=== PATIENT | female | born 1960 | race Caucasian/White ===

== ENCOUNTER → 2017-02-13 | Outpatient (CLI) | payer MEDICARE, OTHER ==
[~2017-02-13] MED LIST: ZANTAC150 MG PO
== END ==
LOC: SLEEP 21:30
DX: G47.30 Sleep apnea, unspecified (principal); G47.10 Hypersomnia, unspecified
CPT/HCPCS: 95811

== ENCOUNTER → 2017-02-14 | Outpatient (CLI) | payer MEDICARE, OTHER | LOC: SLEEP 21:30 | DX: G47.30 Sleep apnea, unspecified (principal); G47.10 Hypersomnia, unspecified | CPT/HCPCS: 95805 ==

== ENCOUNTER 2021-03-19 13:48 | Emergency (ER) | payer MEDICARE, OTHER ==
[~2021-03-19 13:48] MED LIST changes: +ABILIFY10 MG PO; +ALBUTEROL1.25 MG/3 INH; +ALDACTONE25 MG PO; +ALPRAZOLAM0.5 MG PO; +ANTI-GAS180 MG PO; +BACTRIM DS TAB1 EACH PO; +BUMETANIDE1 MG PO; +CALCIUM600 MG PO; +CLEOCIN HCL300 MG PO; +COLACE 100MG C100 MG PO; +COLCHICINE 0.60.6 MG PO; +COREG6.25 MG PO; +CYMBALTA60 MG PO; +DITROPAN XL5 MG PO; +ECOTRIN81 MG PO; +ESTRACE1 MG PO; +FEOSOL325 MG PO; +FISH OIL 1,2001 EACH PO; +FISH OIL EC 1,1 EAC1 PO; +FLONASE 0.05% N16 GM; +IBUPROFEN400 MG PO; +KEFLEX CAP 500500 MG PO; +KENALOG OINT 0.15 GM TOP; +KLOR-CON M1010 MEQ PO; +LASIX20 MG PO; +LASIX40 MG PO; +LISINOPRIL20 MG PO; +MOBIC7.5 MG PO; +MULTIPLE VITAM1 EACH PO; +MYCOSTATIN POWD15 GM TOP; +NEURONTIN400 MG PO; +NIZORAL 2% CREA15 GM TOP; +NORCO 7.5-3251 EACH PO; +OMNICEF 300 MG300 MG PO; +OS-CAL 500+D31 EACH PO; +PEPCID40 MG PO; +PHENERGAN 12.12.5 M1 PO; +PRILOSEC OTC20 MG PO; +PROVIGIL200 MG PO; +RITALIN LA20 MG PO; +ROBAXIN-750750 MG PO; +SINGULAIR10 MG PO; +SPIRIVA HANDIH18 MCG INH; +SPIRONOLACTONE25 MG PO; +SYMBICORT 80-41 INHA INH; +SYNTHROID175 MCG PO; +SYNTHROID200 MCG PO; +VENTOLIN HFA 66.7 GM INH; +VESICARE5 MG PO; +WELLBUTRIN XL150 M1 PO; +XYZAL5 MG PO; +ZESTRIL40 MG PO; +ZOFRAN4 MG PO; +ZYLOPRIM 100 M100 MG PO; +ZYRTEC10 M3 PO; +[UNRECOGNIZED DRUG - OTHER] TP
[2021-03-19] MEDS ORDERED: BACTRIM DS TAB1 EACH PO (15:20)
[2021-03-19] MEDS ORDERED: ATHLETIC FOOT C30 GM TP (15:20)
== END 2021-03-19 15:30 | disposition home or self-care (01) ==
LOC: ER1 13:48
DX: N61.0 Mastitis without abscess (principal); B35.6 Tinea cruris; I10 Essential (primary) hypertension; I25.10 Atherosclerotic heart disease of native coronary artery without angina pectoris; Z88.8 Allergy status to other drugs, medicaments and biological substances
CPT/HCPCS: 99282

== ENCOUNTER 2022-01-17 13:30 | Inpatient (IN) | payer MEDICARE, OTHER ==
[~2022-01-17] VITALS: Ht 163 cm; Wt 145.2 kg
[~2022-01-17 13:30] MED LIST changes: -ABILIFY10 MG PO; +ATHLETIC FOOT C30 GM TP; -COREG6.25 MG PO; -FLONASE 0.05% N16 GM; -KENALOG OINT 0.15 GM TOP; -NEURONTIN400 MG PO; +PROVENTIL HFA6.7 GM INH; -PROVIGIL200 MG PO; +ROBAXIN 750 MG750 MG PO; -ROBAXIN-750750 MG PO; -VENTOLIN HFA 66.7 GM INH
[2022-01-17 14:18] LABS: HEMOGLOBIN 11.3 gm/dl (12.3-15.3); RED BLOOD COUNT 3.71 M/UL (4.00-5.10); WHITE BLOOD COUNT 9.1 K/UL (4.5-11.0)
[2022-01-18] MEDS ORDERED: NORVASC10 MG PO (02:21)
[2022-01-18] MEDS ORDERED: LIPITOR TAB 2020 MG PO (02:22)
[2022-01-18] MEDS ORDERED: BIOTIN5 M1 PO (02:23)
[2022-01-18] MEDS ORDERED: BREO ELLIPTA 11 EACH INH (02:23)
[2022-01-18] MEDS ORDERED: CILOSTAZOL100 MG PO (02:27)
[2022-01-18] MEDS ORDERED: VOLTAREN ARTHRI20 GM TOP (02:29)
[2022-01-18] MEDS ORDERED: PROTONIX 40 MG40 M1 PO (02:35)
[2022-01-18] MEDS ORDERED: SPIRIVA RESPIMAT4 GM INH (02:38)
[2022-01-18] MEDS ORDERED: BENTYL 20MG TAB20 MG PO (02:40)
[2022-01-18] MEDS ORDERED: NYSTATIN15 GM TP (02:47)
[2022-01-18] MEDS ORDERED: PATADAY2.5 ML EYEBOTH (02:49)
[2022-01-18] MEDS ORDERED: BACTROBAN OINT22 GM EXT (02:53)
[2022-01-18] MEDS ORDERED: NITROGLYCERIN0.4 MG SL (02:56)
[2022-01-18 04:03] LABS: HEMOGLOBIN 10.4 gm/dl (12.3-15.3); RED BLOOD COUNT 3.43 M/UL (4.00-5.10); WHITE BLOOD COUNT 8.7 K/UL (4.5-11.0)
[2022-01-18 11:52] LABS: CORONAVIRUS HKU1 Not Detected (Not Detectd); CORONAVIRUS NL63 Not Detected (Not Detectd); CORONAVIRUS OC43 Not Detected (Not Detectd); CORONOAVIRUS 229E Not Detected (Not Detectd); HUMAN METAPNEUMOVIRUS Not Detected (Not Detectd); HUMAN RHINOVIRUS/ENTEROVIRUS Not Detected (Not Detectd); INFLUENZA A Not Detected (Not Detectd)
[2022-01-18 11:53] LABS: BORDETELLA PARAPERTUSSIS Not Detected (Not Detectd); BORDETELLA PERTUSSIS Not Detected (Not Detectd); CHLAMYDIA PNEUMONIAE Not Detected (Not Detectd); INFLUENZA B Not Detected (Not Detectd); MYCOPLASMA PNEUMONIAE Not Detected (Not Detectd); PARAINFLUENZA VIRUS 1 Not Detected (Not Detectd); PARAINFLUENZA VIRUS 2 Not Detected (Not Detectd); PARAINFLUENZA VIRUS 3 Not Detected (Not Detectd); PARAINFLUENZA VIRUS 4 Not Detected (Not Detectd); RESPIRATORY SYNCYTIAL VIRUS Not Detected (Not Detectd)
[2022-01-18 13:21] LABS: SARS-CoV-2 NOT DETECTED (Not Detectd)
[2022-01-18] MEDS ORDERED: COREG 25MG TAB25 MG PO (18:13)
[2022-01-18] MEDS ORDERED: ABILIFY15 MG PO (18:15)
[2022-01-18] MEDS ORDERED: FLONASE 0.05% N16 GM (18:26)
[2022-01-18] MEDS ORDERED: TRIAMCINOLONE A80 GM TP (18:35)
[2022-01-18] MEDS ORDERED: GABAPENTIN600 MG PO (20:44)
[2022-01-18] MEDS ORDERED: PROVIGIL100 MG PO (20:55)
[2022-01-19 04:32] LABS: BUN/CREATININE RATIO 26 (0-10)
[2022-01-19] MEDS ORDERED: DECADRON6 MG PO ×2 (11:49→18:25)
--- NOTE | 2022-01-19 15:58 | NUR ---
REPORT CALLED TO CHARLEE VALLEJO, SPOKE WITH MEET. REGARDING HER WALKER, I SPOKE WITH SUSAN AND SHE IS GOING TO CONTACT [facility] TO ENSURE THE PATIENT RECEIVES A BARIATRIC WALKER.
== END 2022-01-19 16:24 | disposition home health service (06) | DRG 193 ==
LOC: ER1 13:30 → CDU 16:25 → MED SURG 4 16:25
PROVIDERS: Internal Medicine; Physician Assistant; ADMIT Internal Medicine
DX: J12.9 Viral pneumonia, unspecified (principal); J96.01 Acute respiratory failure with hypoxia; I50.33 Acute on chronic diastolic (congestive) heart failure; I13.0 Hypertensive heart and chronic kidney disease with heart failure and stage 1 through stage 4 chronic kidney disease, or unspecified chronic kidney disease; J44.0 Chronic obstructive pulmonary disease with (acute) lower respiratory infection; Z68.43 Body mass index [BMI] 50.0-59.9, adult; Z20.822 Contact with and (suspected) exposure to COVID-19; N18.30 Chronic kidney disease, stage 3 unspecified; M10.9 Gout, unspecified; G89.4 Chronic pain syndrome; E11.22 Type 2 diabetes mellitus with diabetic chronic kidney disease; F41.9 Anxiety disorder, unspecified; E78.5 Hyperlipidemia, unspecified; E66.01 Morbid (severe) obesity due to excess calories; L89.312 Pressure ulcer of right buttock, stage 2; E03.9 Hypothyroidism, unspecified; I16.0 Hypertensive urgency; D64.9 Anemia, unspecified; Z90.49 Acquired absence of other specified parts of digestive tract; Z90.710 Acquired absence of both cervix and uterus; Z98.890 Other specified postprocedural states; Z88.8 Allergy status to other drugs, medicaments and biological substances; Z88.6 Allergy status to analgesic agent; Z83.3 Family history of diabetes mellitus; Z82.49 Family history of ischemic heart disease and other diseases of the circulatory system; Z80.51 Family history of malignant neoplasm of kidney; Z79.82 Long term (current) use of aspirin; Z79.899 Other long term (current) drug therapy; Z85.038 Personal history of other malignant neoplasm of large intestine
CPT/HCPCS: ECHO; 36415; 36600; 71045; 80048; 80053; 81001; 82550; 82553; 82728; 82803; 83036; 83615; 83690; 83735; 83880; 84484; 85025; 85379; 86140; 87086; 87633; 93005; 93306; 93970; 94640; 94664; 94760; 96374; 96376; 99285; A6212; J0696; J1100; J1650; Q9957; Q9967; U0002

== ENCOUNTER → 2022-04-07 | Outpatient (CLI) | payer MEDICARE, OTHER ==
[~2022-04-07] MED LIST changes: +ABILIFY15 MG PO; +BACTROBAN OINT22 GM EXT; +BENTYL 20MG TAB20 MG PO; +BIOTIN5 M1 PO; +BREO ELLIPTA 11 EACH INH; +CILOSTAZOL100 MG PO; +COREG 25MG TAB25 MG PO; +DECADRON6 MG PO; +FLONASE 0.05% N16 GM; +GABAPENTIN600 MG PO; +LIPITOR TAB 2020 MG PO; +NITROGLYCERIN0.4 MG SL; +NORVASC10 MG PO; +NYSTATIN15 GM TP; +PATADAY2.5 ML EYEBOTH; +PROTONIX 40 MG40 M1 PO; +PROVIGIL100 MG PO; +SPIRIVA RESPIMAT4 GM INH; +TRIAMCINOLONE A80 GM TP; +VOLTAREN ARTHRI20 GM TOP
== END ==
LOC: KOH-I 11:45
DX: R06.02 Shortness of breath (principal); R05.9 Cough, unspecified; Z87.01 Personal history of pneumonia (recurrent)
CPT/HCPCS: 71046

== ENCOUNTER 2022-05-21 16:25 | Emergency (ER) | payer MEDICARE, OTHER ==
[~2022-05-21] VITALS: Ht 162.6 cm; Wt 137.4 kg
[2022-05-21 17:32] LABS: HEMOGLOBIN 11.6 gm/dl (12.3-15.3); RED BLOOD COUNT 3.84 M/UL (4.00-5.10); WHITE BLOOD COUNT 7.4 K/UL (4.5-11.0)
== END 2022-05-21 20:13 | disposition home or self-care (01) ==
LOC: ER1 16:25
PROVIDERS: Emergency Medicine
DX: U07.1 COVID-19 (principal); Z23 Encounter for immunization; I50.9 Heart failure, unspecified
CPT/HCPCS: 36600; 71045; 80053; 82550; 82553; 82803; 84484; 85025; 93005; 99285; M0222